=== PATIENT | female | born 1980 | race Caucasian/White ===

== ENCOUNTER 2017-02-03 07:32 | Day surgery (SDC) | payer OTHER ==
[2017-02-02 11:00] LABS: HEMATOCRIT 45.7 % (36.0-47.0); HGB HCT DIFFERENCE 2.3; MEAN CORPUSCULAR HGB CONC 34.9 g/dL (32.0-36.0); MEAN CORPUSCULAR VOLUME 89 fl (80-97); RED BLOOD COUNT 5.15 10^6/uL (3.72-5.28); RED CELL DISTRIBUTION WIDTH 13.9 % (11.5-14.0); WHITE BLOOD COUNT 8.1 10^3/uL (4.0-10.5)
[2017-02-02 11:07] LABS: APPEARANCE,URINE CLOUDY; BILIRUBIN,URINE NEGATIVE (NEGATIVE); GLUCOSE, URINE NEGATIVE (NEGATIVE); KETONES,URINE NEGATIVE (NEGATIVE); LEUKOCYTE ESTERASE,URINE NEGATIVE (NEGATIVE); NITRITE,URINE NEGATIVE (NEGATIVE); PROTEIN,URINE NEGATIVE (NEGATIVE); URINE SPECIFIC GRAVITY 1.014; UROBILINOGEN,URINE NEGATIVE mg/dL (<2.0)
[~2017-02-03 07:32] MED LIST: LACTATED RINGERS 1000 ML IV PRN; LIDOCAINE 0.5% INJ-PF (5 MG/ML) 50 ML SDV SUBCUT PRN
[2017-02-03] MEDS ORDERED: BUPIVACAINE HCL 0.25 % INJ/PF (2.5 MG/1 ML) 30 ML VIAL ONE (07:35)
[2017-02-03] MEDS ORDERED: MIDAZOLAM 2 MG/2 ML INJ ONE (09:30)
[2017-02-03] MEDS ORDERED: ACETAMINOPHEN 100 ML IV ONE (09:30)
[2017-02-03] MEDS ORDERED: FENTANYL CITRATE INJ/PF 250 MCG/5 ML AMPULE ONE (09:30)
[2017-02-03] MEDS ORDERED: PROPOFOL INJ 200 MG/20 ML VIAL IV ONE (09:30)
[2017-02-03] MEDS ORDERED: MEPERIDINE HCL/PF INJ 25 MG/1 ML DISP.SYRIN IV PRN (10:15)
[2017-02-03] MEDS ORDERED: PROMETHAZINE HCL INJ 25 MG/1 ML VIAL IV PRN ×2 (10:15)
[2017-02-03] MEDS ORDERED: FENTANYL CITRATE INJ/PF 100 MCG/2 ML AMPUL IV PRN ×3 (10:15)
[2017-02-03] MEDS ORDERED: OXYCODONE-ACETAMINOPHEN 5-325 MG TABLET PO PRN ×4 (10:15→10:57)
[2017-02-03] MEDS ORDERED: DIPHENHYDRAMINE HCL 50 MG/ML VIAL IV PRN (10:15)
[2017-02-03] MEDS ORDERED: MORPHINE SULFATE 10 MG/ML INJ IV PRN (10:15)
[2017-02-03] MEDS: FENTANYL CITRATE INJ/PF 100 MCG/2 ML AMPUL ONE ×2 (10:40→10:50)
[2017-02-03] MEDS ORDERED: HYDROMORPHONE HCL INJ/PF 2 MG/ML AMPULE IV PRN (10:56)
--- NOTE | 2017-02-03 11:13 | OPERATIVE REPORT E ---
Operative Report NAME: EULALIO NOLASCO : 1980 AGE: 36Y DATE OF SURGERY: ROOM: PREOPERATIVE DIAGNOSIS: Desire for permanent sterilization with laparoscopic tubal ligation. POSTOPERATIVE DIAGNOSIS: Desire for permanent sterilization with laparoscopic tubal ligation. OPERATION: Laparoscopic bilateral tubal ligation with Filshie clips. SURGEON: ZURI VELEZ M.D. ANESTHESIA: General endotracheal. ESTIMATED BLOOD LOSS: 3 mL. FINDINGS: There were omental adhesions to the anterior abdominal wall inferior to the umbilicus, but superior to the uterus. There were some filmy bladder adhesions, and adhesions of the anterior uterus to anterior abdominal wall. Tubes and ovaries appeared normal. PROCEDURE: After discussing risks, benefits, and alternatives of the procedure, and obtaining informed consent, the patient was taken to the operating room where general anesthesia was achieved. She was placed in dorsal lithotomy, and prepped and draped in the usual standard fashion. Bladder was drained via in-and-out catheterization. A speculum was placed, and the Hulka uterine manipulator placed. The speculum was removed. Attention was turned to the patient's abdomen. The infraumbilical fold was grasped with 2 Allis clamps and injected with 0.25% Marcaine with epinephrine. A 5 mm skin incision was made. The OptiView trocar was used with the camera inserted in it, and the abdominal wall elevated and entered under direct visualization. The pneumoperitoneum was obtained. An 8 mm skin incision was made in the left lower quadrant after premedicating with 0.25% Marcaine. The 8 mm left lower quadrant trocar was placed under direct visualization. A Filshie clip was placed across the isthmic portion of each fallopian tube. The left lower quadrant trocar was removed under direct visualization. The peritoneum was released, and the umbilical trocar removed. The skin was closed with 3-0 Monocryl in a subcuticular fashion at both sites. Band-Aids were applied. The Hulka manipulator was removed. Patient was taken out of dorsal lithotomy and into recovery in stable condition. All sponge, needle, lap, and instrument counts were correct x2. DICTATING PHYSICIAN: ZURI VELEZ M.D. [id number] PHY#: [id number] ID: [id number] JOB#: [id number] ACCT: [id number] cc:ZURI VELEZ M.D. >
[2017-02-03] MEDS ORDERED: PROMETHAZINE HCL 25 MG SUPP.RECT PR ONE ×2 (13:00→13:15)
[2017-02-03] MEDS ORDERED: METOCLOPRAMIDE HCL INJ/PF 10 MG/2 ML SDV ONE (13:44)
[2017-02-03] MEDS ORDERED: DEXAMETHASONE SOD PHOSPHATE INJ 4 MG/1 ML VIAL ONE (13:44)
[2017-02-03] MEDS ORDERED: SUCCINYLCHOLINE CHLORIDE INJ 200 MG/10 ML VIAL ONE (13:44)
[2017-02-03] MEDS ORDERED: NEOSTIGMINE METHYLSULFATE 10 MG/10 ML VIAL ONE (13:44)
[2017-02-03] MEDS ORDERED: LIDOCAINE 2% INJ-PF (20 MG/ML) 10 ML AMPUL ONE (13:44)
[2017-02-03] MEDS ORDERED: VECURONIUM BROMIDE INJ 10 MG VIAL IV ONE (13:44)
[2017-02-03] MEDS ORDERED: KETOROLAC TROMETHAMINE 60 MG/2 ML SDV ONE (13:44)
[2017-02-03] MEDS ORDERED: GLYCOPYRROLATE INJ 0.4 MG/2 ML VIAL ONE (13:44)
[2017-02-03] MEDS ORDERED: ONDANSETRON HCL INJ/PF 4 MG/2 ML SDV ONE (13:44)
[2017-02-03 14:27] VITALS: BP 126/84
== END 2017-02-03 14:27 | disposition home or self-care (01) ==
LOC: OROUT 07:32
PROVIDERS: ATTEND Specialist
PROC: 0UL74CZ Occlusion of Bilateral Fallopian Tubes with Extraluminal Device, Percutaneous Endoscopic Approach (ICD-10-PCS; principal; 2017-02-03 09:30)
DX: Z30.2 Encounter for sterilization (principal); Z79.899 Other long term (current) drug therapy; F17.210 Nicotine dependence, cigarettes, uncomplicated; M19.90 Unspecified osteoarthritis, unspecified site; Z87.442 Personal history of urinary calculi
CPT/HCPCS: 36415; 85027; 81005; 81025; 58671; J2250; J1100; J1885; J3010 ×2; J3490 ×3; J2765; J0330; J2405; J2704; J0131; 851

== ENCOUNTER 2017-05-24 15:50 | Emergency (ER) | payer OTHER ==
--- NOTE | 2017-05-24 16:47 | RADIOLOGY REPORT (SQ) ---
EXAM DESCRIPTION: FOOT LEFT COMPLETE COMPLETED DATE/TIME: 05/24/2017 4:18 pm REASON FOR STUDY: left forefoot pain, dropped bottle on foot COMPARISON: None. NUMBER OF VIEWS: Three views. TECHNIQUE: AP, lateral and oblique radiographic images acquired of the left foot. LIMITATIONS: None. FINDINGS: MINERALIZATION: Normal. BONES: No acute fracture or dislocation. No worrisome bone lesions. JOINTS: No effusions. SOFT TISSUES: No soft tissue swelling. No foreign body. OTHER: No other significant finding. IMPRESSION: NEGATIVE STUDY OF THE LEFT FOOT. NO RADIOGRAPHIC EVIDENCE OF ACUTE INJURY. TECHNICAL DOCUMENTATION: JOB ID: [id number] [employer]- All Rights Reserved
--- NOTE | 2017-05-24 16:51 | ER Document Report ---
HPI - HPI Patient complains to provider of: foot injury Onset: Other - 5 days Onset/Duration: Persistent Quality of pain: Achy Pain Level: 3 Context: Patient states that she has had left foot pain for the past 5 days. Patient states that she recently did a lot of yard work but had no specific injury. Patient states that the next day she dropped a shampoo bottle on her foot. Pt additionally reports that her dog stepped on her foot. Patient complains of pain with ambulation. Associated Symptoms: Other - left foot pain Exacerbated by: Standing, Movement, Walking Relieved by: Denies Similar symptoms previously: No Recently seen / treated by doctor: No - ROS ROS below otherwise negative: Yes Systems Reviewed and Negative: Yes All other systems reviewed and negative - CONSTITUTIONAL Constitutional: DENIES: Fever, Chills - CARDIOVASCULAR Cardiovascular: DENIES: Chest pain - REPRODUCTIVE LMP: 04/30/17 - MUSCULOSKELETAL Musculoskeletal: REPORTS: Extremity pain - DERM Skin Color: Normal Skin Problems: None Past Medical History - General Information source: Patient - Social History Smoking Status: Current Every Day Smoker Frequency of alcohol use: None Drug Abuse: None Occupation: produce associate Lives with: Family Family History: Reviewed & Not Pertinent Patient has suicidal ideation: No - Medical History Medical History: Negative - Past Medical History Cardiac Medical History: Denies: Hx Coronary Artery Disease, Hx Heart Attack, Hx Hypertension - low blood pressure Pulmonary Medical History: Denies: Hx Asthma, Hx Bronchitis, Hx COPD, Hx Pneumonia Neurological Medical History: Denies: Hx Cerebrovascular Accident, Hx Seizures Renal/ Medical History: Denies: Hx Peritoneal Dialysis Musculoskeltal Medical History: Reports Hx Arthritis Past Surgical History: Reports: Hx Section, Hx Gynecologic Surgery - Immunizations Hx Diphtheria, Pertussis, Tetanus Vaccination: Yes Vertical Provider Document - CONSTITUTIONAL Agree With Documented VS: Yes Exam Limitations: No Limitations General Appearance: WD/WN, No Apparent Distress - INFECTION CONTROL TRAVEL OUTSIDE OF THE [place] IN LAST 30 DAYS: No - HEENT HEENT: Atraumatic, Normocephalic - NECK Neck: Normal Inspection - RESPIRATORY Respiratory: No Respiratory Distress O2 Sat by Pulse Oximetry: 97 - CARDIOVASCULAR Pulses: Normal: Dorsalis pedis - MUSCULOSKELETAL/EXTREMETIES Musculoskeletal/Extremeties: MAEW, FROM, Tender - Left forefoot tenderness over distal first, second, and third metatarsals. No overt edema, no ecchymosis - NEURO Level of Consciousness: Awake, Alert, Appropriate Motor/Sensory: No Motor Deficit - DERM Integumentary: Warm, Dry, No Rash Course - Vital Signs Vital signs: Temp Pulse Resp BP Pulse Ox 97.7 F 81 18 112/75 97 05/24/17 15:56 05/24/17 15:56 05/24/17 15:56 05/24/17 15:56 05/24/17 15:56 - Diagnostic Test Radiology reviewed: Image reviewed, Reports reviewed Procedures - Immobilization Left Foot Pre-Proc Neuro Vasc Exam: Normal Immobilizer type: Tom wrap, Post-op shoe Performed by: PCT Post-Proc Neuro Vasc Exam: Normal Alignment checked and good: Yes Discharge - Discharge Clinical Impression: Sprain of foot, left Qualifiers: Encounter type: initial encounter Qualified Code(s): S93.602A - Unspecified sprain of left foot, initial encounter Condition: Stable Disposition: HOME, SELF-CARE Instructions: Ice Packs ([facility]), Sprain ([facility]), Tom Wrap ([facility]), Post-Op Shoe ([facility]) , Use of Crutches ([facility]) Additional Instructions: Return immediately for any new or worsening symptoms Followup with your primary care provider, call tomorrow to make a followup appointment Weightbearing as tolerated Follow-up with orthopedic doctor for any continued pain or problems Prescriptions: Acetaminophen with Codeine [Acetaminophen-Cod #3 Tablet] 1 each PO Q6 PRN #15 tablet PRN Reason: Naproxen [Naprosyn 250 Nmg Tablet] 1 tab PO BID #14 tablet Referrals: BAMBI SMITH NP-C [Primary Care Provider] - Follow up as needed [facility] [Provider Group] - Follow up as needed
[2017-05-24 17:04] VITALS: BP 117/83
== END 2017-05-24 17:10 | disposition home or self-care (01) ==
LOC: ER 15:50
DX: S93.602A Unspecified sprain of left foot, initial encounter (principal); F17.200 Nicotine dependence, unspecified, uncomplicated; W20.8XXA Other cause of strike by thrown, projected or falling object, initial encounter
CPT/HCPCS: 99283

== ENCOUNTER → 2018-03-06 | Outpatient (CLI) | payer MEDICAID ==
--- NOTE | 2018-03-06 12:36 | RADIOLOGY REPORT (SQ) ---
EXAM DESCRIPTION: CHEST PA/LATERAL COMPLETED DATE/TIME: 03/06/2018 12:09 pm REASON FOR STUDY: COUGH COMPARISON: None. EXAM PARAMETERS: NUMBER OF VIEWS: two views TECHNIQUE: Digital Frontal and Lateral radiographic views of the chest acquired. RADIATION DOSE: NA LIMITATIONS: none FINDINGS: LUNGS AND PLEURA: Increased interstitial markings at both lung bases with Paola lines, wh ich could indicate interstitial pulmonary edema or interstitial fibrosis. No pleural effusion. No pneumothorax. No dense consolidation worrisome for pneumonia. No pulmonary nodules. MEDIASTINUM AND HILAR STRUCTURES: No masses or contour abnormalities. HEART AND VASCULAR STRUCTURES: Heart normal size. No evidence for failure. BONES: No acute findings. HARDWARE: None in the chest. OTHER: No other significant finding. IMPRESSION: Increased interstitial markings at both lung bases, could indicate interstitial pulmonar y edema. Interstitial pulmonary fibrosis is possible. TECHNICAL DOCUMENTATION: JOB ID: [id number] [employer]- All Rights Reserved Reading location - IP/workstation name: [email or web address]
== END ==
LOC: OD 11:52
PROVIDERS: ATTEND Nurse Practitioner Family
DX: R05 Cough (principal)
CPT/HCPCS: 71046

== ENCOUNTER 2018-04-22 16:40 | Emergency (ER) | payer MEDICAID ==
[2018-04-22 16:49] VITALS: BP 120/78
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
[2018-04-22] MEDS ORDERED: ACETAMINOPHEN 325 MG TABLET PO ONE (17:13)
[2018-04-22] MEDS ORDERED: IBUPROFEN 800 MG TABLET PO ONE (17:13)
--- NOTE | 2018-04-22 17:13 | RADIOLOGY REPORT (SQ) ---
EXAM DESCRIPTION: FOOT RIGHT COMPLETE COMPLETED DATE/TIME: 04/22/2018 5:06 pm REASON FOR STUDY: INJURY COMPARISON: None. NUMBER OF VIEWS: Three views. TECHNIQUE: AP, lateral and oblique radiographic images acquired of the right foot. LIMITATIONS: None. FINDINGS: MINERALIZATION: Normal. BONES: No acute fracture or dislocation. No worrisome bone lesions. JOINTS: No effusions. SOFT TISSUES: No soft tissue swelling. No foreign body. OTHER: No other significant finding. IMPRESSION: NEGATIVE STUDY OF THE RIGHT FOOT. NO RADIOGRAPHIC EVIDENCE OF ACUTE INJURY. TECHNICAL DOCUMENTATION: JOB ID: [id number] [employer]- All Rights Reserved Reading location - IP/workstation name: [email or web address]
== END 2018-04-22 17:34 | disposition home or self-care (01) ==
LOC: ER 16:40
DX: S90.31XA Contusion of right foot, initial encounter (principal); V93.4 Struck by falling object on board watercraft
CPT/HCPCS: 99283; 73630; J3490 ×2

== ENCOUNTER 2018-05-23 10:51 | Emergency (ER) | payer MEDICAID ==
[2018-05-23 11:46] VITALS: BP 106/72
== END 2018-05-23 14:09 | disposition left against medical advice (07) ==
LOC: ER 10:51
DX: Z53.21 Procedure and treatment not carried out due to patient leaving prior to being seen by health care provider (principal)